=== PATIENT | female | born 1940 | race Asian ===

== ENCOUNTER 2022-03-22 05:12 | Observation (INO) | payer OTHER ==
[2022-03-22 05:30] VITALS: BMI 18.8
[2022-03-22 07:26] LABS: BASO % 0.8 % (0-2.0); EOS % 1.4 % (0-4.5); HEMATOCRIT 30.8 % (32.4-45.2); MCH 35.7 pg (25.7-33.7); MCHC 32.6 g/dl (32.0-36.0); MEAN CELL VOLUME 109.7 fl (80-96); MONO % 8.8 % (3.8-10.2); PLATELET COUNT 70 10^3/uL (134-434); RBC 2.81 M/mm3 (3.60-5.2); RDW 22.6 % (11.6-15.6); WHITE BLOOD COUNT 3.3 K/mm3 (4.0-10.0)
[2022-03-22 07:50] LABS: CHLORIDE 101 mmol/L (98-107); SODIUM 137 mmol/L (136-145)
[2022-03-22 07:52] LABS: ALBUMIN 3.5 g/dl (3.4-5.0); ANION GAP 13 MMOL/L (8-16); BLOOD UREA NITROGEN 38.1 mg/dL (7-18); CALCIUM 9.6 mg/dL (8.5-10.1); CO2 23 mmol/L (21-32); GLUCOSE,RANDOM 162 mg/dL (74-106); MAGNESIUM 2.8 mg/dL (1.8-2.4)
[2022-03-22 07:55] LABS: CREATININE 5.4 mg/dL (0.55-1.3); PHOSPHOROUS 3.8 mg/dL (2.5-4.9); SGPT/ALT 30 U/L (13-61)
[2022-03-22 07:56] LABS: SGOT/AST 49 U/L (15-37)
[2022-03-22 07:57] LABS: BILIRUBIN,TOTAL 1.9 mg/dL (0.2-1); TOT PROT 8.2 g/dl (6.4-8.2)
[2022-03-22 07:58] LABS: ALK PHOS 217 U/L (45-117)
[2022-03-22] MEDS ORDERED: ASPIRIN 81 MG CHEWABLE TABLETS PO ONE (08:31)
[2022-03-22] MEDS ORDERED: ASPIRIN 81 MG CHEWABLE TABLETS ONE (09:21)
[2022-03-22] MEDS ORDERED: SODIUM CHLORIDE 250 ML IV PRN ×2 (14:04→14:06)
[2022-03-22] MEDS ORDERED: HEPARIN NA (PORCINE) 5,000 UNITS/ML 1ML VIAL SQ SCH (22:00)
[2022-03-23] MEDS ORDERED: HEPARIN NA (PORCINE) 5,000 UNITS/ML 1ML VIAL IVPUSH ONE (08:30)
[2022-03-23] MEDS ORDERED: SODIUM CHLORIDE 250 ML IV PRN (08:37)
[2022-03-23] MEDS: ALBUMIN HUMAN 25% 12.5 GM/50 ML VIAL IV SCH ×4 (08:45→10:15)
[2022-03-23 09:42] LABS: BASO % 0.4 % (0-2.0); EOS % 0.8 % (0-4.5); HEMATOCRIT 25.8 % (32.4-45.2); HEMOGLOBIN 8.6 GM/dL (10.7-15.3); LYMPH % 14.7 % (8-40); MCH 36.4 pg (25.7-33.7); MCHC 33.5 g/dl (32.0-36.0); MEAN CELL VOLUME 108.8 fl (80-96); MEAN PLT VOLUME 7.6 fl (7.5-11.1); NEUT % 75.1 % (42.8-82.8); PLATELET COUNT 43 10^3/uL (134-434); RBC 2.37 M/mm3 (3.60-5.2); RDW 22.2 % (11.6-15.6); WHITE BLOOD COUNT 4.9 K/mm3 (4.0-10.0)
[2022-03-23] MEDS ORDERED: MIDODRINE HCL 5 MG TABLET PO SCH (10:00)
[2022-03-23] MEDS ORDERED: MIDODRINE HCL 5 MG TABLET PO PRN ×2 (14:49→15:28)
[2022-03-23] MEDS: LACTULOSE 20 GM/30 ML UDC (FOR ORAL USE ONLY) PO SCH ×2 (16:00→21:41)
[2022-03-23 16:22] LABS: BLOOD UREA NITROGEN 45.5 mg/dL (7-18)
[2022-03-23 16:23] LABS: CALCIUM 8.9 mg/dL (8.5-10.1)
[2022-03-23] MEDS: CHOLESTYRAMINE/SUCROSE 4 GM PACKET PO SCH (18:03)
[2022-03-23] MEDS: RIFAXIMIN 550 MG TABLET PO SCH (21:41)
[2022-03-23] MEDS: SIMETHICONE 80 MG TAB.CHEW (FP) PO SCH (21:41)
[2022-03-24] MEDS: LACTULOSE 20 GM/30 ML UDC (FOR ORAL USE ONLY) PO SCH ×3 (06:08→23:17)
[2022-03-24] MEDS ORDERED: PANTOPRAZOLE 40 MG TABLET PO SCH (10:00)
[2022-03-24] MEDS ORDERED: MIDODRINE HCL 5 MG TABLET PO SCH (10:00)
[2022-03-24] MEDS: SIMETHICONE 80 MG TAB.CHEW (FP) PO SCH ×2 (10:08→22:39)
[2022-03-24] MEDS: RIFAXIMIN 550 MG TABLET PO SCH ×2 (10:08→22:40)
[2022-03-24] MEDS: CHOLESTYRAMINE/SUCROSE 4 GM PACKET PO SCH (10:10)
[2022-03-24] MEDS ORDERED: SODIUM CHLORIDE 250 ML IV PRN ×2 (10:38→20:42)
[2022-03-24] MEDS: HEPARIN NA (PORCINE) 5,000 UNITS/ML 1ML VIAL SQ SCH ×2 (15:56→22:39)
[2022-03-24 16:07] LABS: ALBUMIN 3.6 g/dl (3.4-5.0); CALCIUM 9.3 mg/dL (8.5-10.1)
[2022-03-24 16:11] LABS: CREATININE 4.2 mg/dL (0.55-1.3)
[2022-03-24 16:12] LABS: BILIRUBIN,TOTAL 1.9 mg/dL (0.2-1); TOT PROT 7.8 g/dl (6.4-8.2)
[2022-03-24] MEDS: AMINO ACIDS/PROTEIN HYDROLYS 30 ML LIQUID.PKT PO SCH (17:17)
[2022-03-24] MEDS ORDERED: MIDODRINE HCL 5 MG TABLET PO PRN (20:42)
[2022-03-25] MEDS: LACTULOSE 20 GM/30 ML UDC (FOR ORAL USE ONLY) PO SCH ×3 (05:26→21:05)
[2022-03-25] MEDS: SIMETHICONE 80 MG TAB.CHEW (FP) PO SCH ×2 (09:49→21:05)
[2022-03-25] MEDS: AMINO ACIDS/PROTEIN HYDROLYS 30 ML LIQUID.PKT PO SCH ×2 (09:49→17:56)
[2022-03-25] MEDS: HEPARIN NA (PORCINE) 5,000 UNITS/ML 1ML VIAL SQ SCH ×2 (09:49→21:05)
[2022-03-25] MEDS ORDERED: PANTOPRAZOLE 40 MG TABLET PO SCH (10:00)
[2022-03-25] MEDS ORDERED: CHOLESTYRAMINE/SUCROSE 4 GM PACKET PO SCH (10:00)
[2022-03-25] MEDS ORDERED: VITAMIN B COMP W-C 1 EA TABLET (NEPHRO-VITE) PO SCH (10:00)
[2022-03-25] MEDS ORDERED: EPOETIN ALFA 10,000 UNIT/1 ML VIAL SQ ONE ×2 (10:40→17:00)
[2022-03-25] MEDS ORDERED: ALBUMIN HUMAN 25% 12.5 GM/50 ML VIAL IVPB SCH (10:45)
[2022-03-25] MEDS: ALBUMIN HUMAN 25% 12.5 GM/50 ML VIAL IV SCH ×4 (14:45→17:31)
[2022-03-25] MEDS: RIFAXIMIN 550 MG TABLET PO SCH ×2 (15:18→21:06)
[2022-03-25 15:50] LABS: HEMATOCRIT 26.1 % (32.4-45.2); HEMOGLOBIN 8.5 GM/dL (10.7-15.3); MCH 35.7 pg (25.7-33.7); MCHC 32.5 g/dl (32.0-36.0); MEAN CELL VOLUME 109.6 fl (80-96); MEAN PLT VOLUME 7.8 fl (7.5-11.1); PLATELET COUNT 43 10^3/uL (134-434); RBC 2.38 M/mm3 (3.60-5.2); RDW 20.7 % (11.6-15.6); WHITE BLOOD COUNT 4.3 K/mm3 (4.0-10.0)
[2022-03-25 15:59] LABS: INR 1.42 (0.83-1.09); PROTHROMBIN TIME (PATIENT) 16.4 SEC (9.7-13.0)
[2022-03-25 16:01] LABS: ACTIVATED PTT 52.1 SECONDS (25.2-36.5)
[2022-03-25 16:10] LABS: ALBUMIN 3.2 g/dl (3.4-5.0); BLOOD UREA NITROGEN 32.5 mg/dL (7-18)
[2022-03-25 16:14] LABS: BILIRUBIN,TOTAL 1.8 mg/dL (0.2-1)
[2022-03-25 16:15] LABS: TOT PROT 7.2 g/dl (6.4-8.2)
[2022-03-25 22:21] VITALS: RESP 18
[2022-03-26 03:31] VITALS: TEMP 97.5
[2022-03-26 05:02] VITALS: BP 97/59; PULSE 110
[2022-03-26] MEDS: LACTULOSE 20 GM/30 ML UDC (FOR ORAL USE ONLY) PO SCH (05:12)
== END 2022-03-26 07:23 | disposition home health service (06) ==
LOC: JER 05:12 → INTOOBSV 11:13 → UNDOADMOB 11:13 → JERBED 11:13 → J4W 23:04 → JERBED 23:04 → J4W 03-23 13:45 → J8W 03-24 20:15
PROVIDERS: ADMIT Internal Medicine; ATTEND Internal Medicine
PROC: 3E033GC Introduction of Other Therapeutic Substance into Peripheral Vein, Percutaneous Approach (ICD-10-PCS; principal; 2022-03-23)
PROC: 3E023GC Introduction of Other Therapeutic Substance into Muscle, Percutaneous Approach (ICD-10-PCS; 2022-03-23)
DX: K74.69 Other cirrhosis of liver (principal); K76.6 Portal hypertension; I81 Portal vein thrombosis; D68.59 Other primary thrombophilia; D69.6 Thrombocytopenia, unspecified; I24.8 Other forms of acute ischemic heart disease; R07.9 Chest pain, unspecified; R77.8 Other specified abnormalities of plasma proteins; E11.22 Type 2 diabetes mellitus with diabetic chronic kidney disease; N18.6 End stage renal disease; Z99.2 Dependence on renal dialysis; D61.818 Other pancytopenia
CPT/HCPCS: 0241U-QW; 36415; 71045-TC-FY; 80048; 80053; 83735; 83880; 84100; 84484; 85025; 85027; 85384; 85610; 85730; 86803; 87340; 93005; 93010; 93306-TC; 96372; 96374; 96375; 99285-25; G0378; J0885; J1644; P9047

== ENCOUNTER 2022-10-22 04:55 | Inpatient (IN) | payer OTHER ==
[2022-10-22 06:09] LABS: VENOUS BASE EXCESS -1.8 mmol/L (-2-2); VENOUS O2 SATURATION 32.1 % (70-80); VENOUS PCO2 58.8 mmHg (38-52); VENOUS PH 7.268 (7.310-7.410)
[2022-10-22 06:16] LABS: CHLORIDE 102 mmol/L (98-107); POTASSIUM 3.8 mmol/L (3.5-5.1); SODIUM 139 mmol/L (136-145)
[2022-10-22 06:18] LABS: CALCIUM 9.5 mg/dL (8.5-10.1)
[2022-10-22 06:20] LABS: ALBUMIN 2.8 g/dl (3.4-5.0); ANION GAP 11 MMOL/L (8-16); BLOOD UREA NITROGEN 43.3 mg/dL (7-18); CO2 26 mmol/L (21-32); GLUCOSE,RANDOM 201 mg/dL (74-106)
[2022-10-22 06:23] LABS: BILIRUBIN,TOTAL 2.5 mg/dL (0.2-1); CREATININE 3.8 mg/dL (0.55-1.3); SGOT/AST 19 U/L (15-37); SGPT/ALT 12 U/L (13-61); TOT PROT 7.5 g/dl (6.4-8.2)
[2022-10-22 06:25] LABS: ALK PHOS 120 U/L (45-117)
[2022-10-22 06:30] LABS: LACTIC ACID 5.7 mmol/L (0.4-2.0)
[2022-10-22] MEDS ORDERED: PIPERACILLIN/TAZOB 4.5 GM 4.5 GM in DEXTROSE 5%-WATER 100 ML IVPB ONE (06:31)
[2022-10-22] MEDS ORDERED: VANCOMYCIN 1 GM in D5W (PRE-DOCKED) 1,000 MG/250 ML (RESTRICTED TO ID ONLY IVPB ONE (06:31)
[2022-10-22] MEDS ORDERED: PIPERACILLIN/TAZOB 4.5 GM 4.5 GM/100 ML BAG IVPB ONE (06:39)
[2022-10-22 06:50] LABS: BASO % 0.7 % (0-2.0); EOS % 0.7 % (0-4.5); HEMATOCRIT 29.7 % (32.4-45.2); HEMOGLOBIN 9.4 GM/dL (10.7-15.3); LYMPH % 16.1 % (8-40); MCH 33.3 pg (25.7-33.7); MCHC 31.8 g/dl (32.0-36.0); MEAN CELL VOLUME 104.8 fl (80-96); MEAN PLT VOLUME 9.5 fl (7.5-11.1); MONO % 8.9 % (3.8-10.2); NEUT % 73.6 % (42.8-82.8); RBC 2.83 M/mm3 (3.60-5.2); RDW 26.6 % (11.6-15.6)
[2022-10-22 06:53] LABS: PLATELET COUNT 22 10^3/uL (134-434)
[2022-10-22] MEDS ORDERED: VANCOMYCIN/WATER FOR INJ (PEG) 1,000 MG/200 ML BAG IVPB ONE (07:31)
[2022-10-22] MEDS ORDERED: SODIUM CHLORIDE 0.9% 500 ML INFUS.BAG IV ONE ×2 (09:12→09:45)
[2022-10-22] MEDS ORDERED: MIDODRINE HCL 5 MG TABLET PO ONE (09:15)
[2022-10-22 09:57] LABS: LACTIC ACID 4.5 mmol/L (0.4-2.0)
[2022-10-22] MEDS ORDERED: HEPARIN NA (PORCINE) 5,000 UNITS/ML 1ML VIAL SQ SCH (10:00)
[2022-10-22] MEDS ORDERED: MIDODRINE HCL 5 MG TABLET PO SCH ×2 (10:00→11:23)
[2022-10-22] MEDS ORDERED: VASOPRESSIN 20 UNITS/ML VIAL IV ONE (12:35)
[2022-10-22] MEDS ORDERED: NOREPINEPHRINE BITARTRATE 16,000 MCG in SODIUM CHLORIDE 484 ML IV SCH (13:30)
[2022-10-22] MEDS ORDERED: DEXMEDETOMIDINE PREMIX 400 MCG/100 ML BAG IVPB ONE (13:34)
[2022-10-22] MEDS ORDERED: PATIENT'S OWN MEDICATION (NON-FORMULARY) (Midodrine Hcl [Midodrine Hcl] 10 MG Tablet) PO PRN (13:52)
[2022-10-22] MEDS: NOREPINEPHRINE 0.9 % NACL 8 MG/250 ML BAG IVPB SCH (14:00)
[2022-10-22] MEDS: MUPIROCIN 2% TOPICAL OINTMENT FOR DECOLONIZATION NS SCH ×2 (14:08→21:48)
[2022-10-22] MEDS: RIFAXIMIN 550 MG TABLET PO SCH ×2 (14:09→21:48)
[2022-10-22] MEDS: PANTOPRAZOLE 40 MG TABLET PO SCH (14:09)
[2022-10-22] MEDS ORDERED: DEXMEDETOMIDINE PREMIX 400 MCG/100 ML BAG IVPB SCH (14:30)
[2022-10-22] MEDS: LACTULOSE 20 GM/30 ML UDC (FOR ORAL USE ONLY) PO SCH ×2 (14:49→21:47)
[2022-10-22] MEDS: MIDODRINE HCL 5 MG TABLET PO SCH ×2 (14:50→17:15)
[2022-10-22 15:56] LABS: ARTERIAL BLD GAS O2 SATURATION 99.5 % (95-98); ARTERIAL BLOOD GAS BASE EXCESS -4.5 mmol/L (-2-2); ARTERIAL BLOOD GAS pH 7.333 (7.350-7.450)
[2022-10-22] MEDS: AMINO ACIDS/PROTEIN HYDROLYS 30 ML LIQUID.PKT PO SCH (16:46)
[2022-10-22] MEDS: DROXIDOPA 200 MG PO SCH ×2 (16:46→21:47)
[2022-10-22 18:25] LABS: RETICULOCYTES 1.96 % (0.5-1.5)
[2022-10-22 18:31] LABS: BILIRUBIN,DIRECT 1.4 mg/dL (0.0-0.2)
[2022-10-22 18:36] LABS: LDH 258 U/L (84-246)
[2022-10-22 19:02] LABS: INR 1.76 (0.83-1.09); PROTHROMBIN TIME (PATIENT) 20.3 SEC (9.7-13.0)
[2022-10-22 19:04] LABS: ACTIVATED PTT 48.5 SECONDS (25.2-36.5)
[2022-10-22] MEDS ORDERED: SODIUM CHLORIDE 250 ML IV PRN (19:19)
[2022-10-22] MEDS ORDERED: VASOPRESSIN 40 UNITS/100 ML BAG IV SCH (19:45)
[2022-10-22] MEDS: VASOPRESSIN 40 UNITS/100 ML BAG IV SCH (20:29)
[2022-10-22] MEDS: URSODIOL 300 MG CAPSULE PO SCH (21:47)
[2022-10-22] MEDS: INSULIN SLIDING SCALE (NOVOLOG) 1 VIAL SQ SCH (21:47)
[2022-10-22] MEDS: CHLORHEXIDINE GLUCONATE 4% CLEANSER FOR DECOLONIZATION TP SCH (21:47)
[2022-10-23 04:16] LABS: BF WBC & OTHER NUCLEATED CELLS 563 /mm3
[2022-10-23 04:22] LABS: BODY FLUID MONOCYTE 29 %
[2022-10-23] MEDS: LACTULOSE 20 GM/30 ML UDC (FOR ORAL USE ONLY) PO SCH ×3 (06:03→21:10)
[2022-10-23] MEDS: DROXIDOPA 200 MG PO SCH ×3 (06:03→21:10)
[2022-10-23] MEDS: INSULIN SLIDING SCALE (NOVOLOG) 1 VIAL SQ SCH ×4 (06:24→21:14)
[2022-10-23 07:06] LABS: HEMATOCRIT 23.1 % (32.4-45.2); HEMOGLOBIN 7.4 GM/dL (10.7-15.3); MCHC 31.9 g/dl (32.0-36.0); MEAN CELL VOLUME 103.4 fl (80-96); MEAN PLT VOLUME 9.5 fl (7.5-11.1); PLATELET COUNT 52 10^3/uL (134-434); RBC 2.23 M/mm3 (3.60-5.2); RDW 26.1 % (11.6-15.6); WHITE BLOOD COUNT 15.3 K/mm3 (4.0-10.0)
[2022-10-23 07:24] LABS: POTASSIUM 4.1 mmol/L (3.5-5.1)
[2022-10-23 07:31] LABS: ALBUMIN 2.4 g/dl (3.4-5.0)
[2022-10-23 07:32] LABS: CALCIUM 9.3 mg/dL (8.5-10.1)
[2022-10-23 07:33] LABS: BLOOD UREA NITROGEN 51.2 mg/dL (7-18); MAGNESIUM 2.4 mg/dL (1.8-2.4)
[2022-10-23 07:34] LABS: CREATININE 4.1 mg/dL (0.55-1.3)
[2022-10-23 07:36] LABS: BILIRUBIN,TOTAL 2.9 mg/dL (0.2-1); PHOSPHOROUS 3.7 mg/dL (2.5-4.9); TOT PROT 6.5 g/dl (6.4-8.2)
[2022-10-23] MEDS ORDERED: EPOETIN ALFA-EPBX 4,000 UNIT/ML VIAL IVPUSH ONE (08:00)
[2022-10-23] MEDS: AMINO ACIDS/PROTEIN HYDROLYS 30 ML LIQUID.PKT PO SCH ×4 (08:20→17:19)
[2022-10-23 08:41] LABS: ANISOCYTOSIS 1+; MACROCYTOSIS 1+
[2022-10-23] MEDS: RIFAXIMIN 550 MG TABLET PO SCH ×3 (09:13→21:10)
[2022-10-23] MEDS: URSODIOL 300 MG CAPSULE PO SCH ×3 (09:14→21:09)
[2022-10-23] MEDS: MIDODRINE HCL 5 MG TABLET PO SCH ×4 (09:14→17:19)
[2022-10-23] MEDS: PANTOPRAZOLE 40 MG TABLET PO SCH (09:14)
[2022-10-23] MEDS: CHOLESTYRAMINE/ASPARTAME 4 GM PACKET PO SCH ×2 (09:14→11:21)
[2022-10-23] MEDS: MUPIROCIN 2% TOPICAL OINTMENT FOR DECOLONIZATION NS SCH ×2 (09:14→21:09)
[2022-10-23 10:23] LABS: BLOOD UREA NITROGEN 47.9 mg/dL (7-18); CALCIUM 9.3 mg/dL (8.5-10.1)
[2022-10-23 10:24] LABS: ALBUMIN 2.2 g/dl (3.4-5.0)
[2022-10-23 10:26] LABS: CREATININE 3.8 mg/dL (0.55-1.3)
[2022-10-23 10:27] LABS: BILIRUBIN,DIRECT 1.7 mg/dL (0.0-0.2)
[2022-10-23 10:28] LABS: BILIRUBIN,TOTAL 2.5 mg/dL (0.2-1); TOT PROT 5.9 g/dl (6.4-8.2)
[2022-10-23] MEDS ORDERED: PIPERACILLIN/TAZOB 2.25 GM 2.25 GM in DEXTROSE 5%-WATER - 50 ML IVPB SCH (10:30)
[2022-10-23] MEDS: PANTOPRAZOLE SODIUM 40 MG VIAL IVPUSH SCH (11:28)
[2022-10-23] MEDS: NOREPINEPHRINE 0.9 % NACL 8 MG/250 ML BAG IVPB SCH (11:29)
[2022-10-23] MEDS: ALBUMIN HUMAN 25% 12.5 GM/50 ML VIAL IV SCH ×3 (11:31→11:32)
[2022-10-23] MEDS ORDERED: VANCOMYCIN/WATER FOR INJ (PEG) 750 MG/150 ML BAG IVPB ONE (12:30)
[2022-10-23 14:49] LABS: HEMATOCRIT 20.4 % (32.4-45.2); MCHC 31.8 g/dl (32.0-36.0); MEAN CELL VOLUME 103.6 fl (80-96); MEAN PLT VOLUME 9.2 fl (7.5-11.1); PLATELET COUNT 40 10^3/uL (134-434); RBC 1.97 M/mm3 (3.60-5.2); RDW 26.2 % (11.6-15.6); WHITE BLOOD COUNT 13.2 K/mm3 (4.0-10.0)
[2022-10-23 14:54] LABS: HEMOGLOBIN 6.5 GM/dL (10.7-15.3)
[2022-10-23 15:16] LABS: ANISOCYTOSIS 2+; MACROCYTOSIS 2+; TARGET CELLS 1+
[2022-10-23] MEDS: PIPERACILLIN/TAZOB 2.25 GM 2.25 GM in DEXTROSE 5%-WATER - 50 ML IVPB SCH ×2 (15:50→21:06)
[2022-10-23 15:53] LABS: ARTERIAL BLD GAS O2 SATURATION 99.7 % (95-98); ARTERIAL BLOOD GAS BASE EXCESS 0.4 mmol/L (-2-2); ARTERIAL BLOOD GAS PO2 280.6 mmHg (80-100); ARTERIAL BLOOD GAS pH 7.435 (7.350-7.450)
[2022-10-23] MEDS: VASOPRESSIN 40 UNITS/100 ML BAG IV SCH (21:09)
[2022-10-23] MEDS: CHLORHEXIDINE GLUCONATE 4% CLEANSER FOR DECOLONIZATION TP SCH (21:10)
[2022-10-24] MEDS: PIPERACILLIN/TAZOB 2.25 GM 2.25 GM in DEXTROSE 5%-WATER - 50 ML IVPB SCH ×4 (02:30→21:55)
[2022-10-24] MEDS: LACTULOSE 20 GM/30 ML UDC (FOR ORAL USE ONLY) PO SCH ×4 (05:52→22:19)
[2022-10-24] MEDS: DROXIDOPA 200 MG PO SCH ×3 (05:52→21:56)
[2022-10-24] MEDS: INSULIN SLIDING SCALE (NOVOLOG) 1 VIAL SQ SCH ×4 (06:38→22:34)
[2022-10-24 07:44] LABS: HEMATOCRIT 26.8 % (32.4-45.2); HEMOGLOBIN 8.8 GM/dL (10.7-15.3); MCH 32.7 pg (25.7-33.7); MCHC 32.8 g/dl (32.0-36.0); MEAN CELL VOLUME 99.6 fl (80-96); MEAN PLT VOLUME 9.1 fl (7.5-11.1); RBC 2.69 M/mm3 (3.60-5.2); RDW 24.4 % (11.6-15.6); WHITE BLOOD COUNT 14.4 K/mm3 (4.0-10.0)
[2022-10-24 07:49] LABS: PLATELET COUNT 31 10^3/uL (134-434)
[2022-10-24 07:52] LABS: POTASSIUM 3.5 mmol/L (3.5-5.1)
[2022-10-24 07:58] LABS: CALCIUM 9.2 mg/dL (8.5-10.1)
[2022-10-24 07:59] LABS: ALBUMIN 2.6 g/dl (3.4-5.0); BLOOD UREA NITROGEN 34.7 mg/dL (7-18); MAGNESIUM 2.2 mg/dL (1.8-2.4)
[2022-10-24 08:02] LABS: CREATININE 2.6 mg/dL (0.55-1.3); PHOSPHOROUS 4.2 mg/dL (2.5-4.9)
[2022-10-24 08:03] LABS: TOT PROT 6.6 g/dl (6.4-8.2)
[2022-10-24 08:04] LABS: BILIRUBIN,TOTAL 3.5 mg/dL (0.2-1)
[2022-10-24] MEDS: AMINO ACIDS/PROTEIN HYDROLYS 30 ML LIQUID.PKT PO SCH ×2 (09:01→18:28)
[2022-10-24] MEDS: ACETAMINOPHEN 650 MG/20.3 ML ORAL SOLUTION (CUPS) PO PRN ×2 (09:01→15:59)
[2022-10-24] MEDS: PANTOPRAZOLE SODIUM 40 MG VIAL IVPUSH SCH (09:01)
[2022-10-24] MEDS: RIFAXIMIN 550 MG TABLET PO SCH ×2 (09:02→21:55)
[2022-10-24] MEDS: MIDODRINE HCL 5 MG TABLET PO SCH ×3 (09:02→18:28)
[2022-10-24] MEDS: CHOLESTYRAMINE/ASPARTAME 4 GM PACKET PO SCH (09:05)
[2022-10-24 09:22] LABS: ANISOCYTOSIS 0; MACROCYTOSIS 0
[2022-10-24] MEDS: MUPIROCIN 2% TOPICAL OINTMENT FOR DECOLONIZATION NS SCH ×2 (09:36→21:50)
[2022-10-24] MEDS: URSODIOL 300 MG CAPSULE PO SCH ×2 (09:36→21:56)
[2022-10-24] MEDS ORDERED: VANCOMYCIN 1 GM in D5W (PRE-DOCKED) 1,000 MG/250 ML (RESTRICTED TO ID ONLY IVPB ONE (10:00)
[2022-10-24] MEDS ORDERED: VANCOMYCIN/WATER FOR INJ (PEG) 1,000 MG/200 ML BAG IVPB ONE (10:00)
[2022-10-24] MEDS: LIDOCAINE 5% TOPICAL PATCH TP SCH (10:00)
[2022-10-24] MEDS: VASOPRESSIN 40 UNITS/100 ML BAG IV SCH (21:48)
[2022-10-24] MEDS: LIDOCAINE PATCH REMOVAL MC SCH (21:50)
[2022-10-24] MEDS: CHLORHEXIDINE GLUCONATE 4% CLEANSER FOR DECOLONIZATION TP SCH (21:50)
[2022-10-25] MEDS: PIPERACILLIN/TAZOB 2.25 GM 2.25 GM in DEXTROSE 5%-WATER - 50 ML IVPB SCH ×4 (02:25→21:21)
[2022-10-25] MEDS: ACETAMINOPHEN 650 MG/20.3 ML ORAL SOLUTION (CUPS) PO PRN (02:38)
[2022-10-25] MEDS: LACTULOSE 20 GM/30 ML UDC (FOR ORAL USE ONLY) PO SCH ×3 (05:05→21:23)
[2022-10-25] MEDS: DROXIDOPA 200 MG PO SCH ×3 (05:05→21:23)
[2022-10-25] MEDS: INSULIN SLIDING SCALE (NOVOLOG) 1 VIAL SQ SCH ×4 (06:06→21:24)
[2022-10-25 07:51] LABS: LACTIC ACID 3.6 mmol/L (0.4-2.0)
[2022-10-25] MEDS: MIDODRINE HCL 5 MG TABLET PO SCH ×3 (10:08→17:51)
[2022-10-25] MEDS: RIFAXIMIN 550 MG TABLET PO SCH ×2 (10:08→21:23)
[2022-10-25] MEDS: LIDOCAINE 5% TOPICAL PATCH TP SCH (10:09)
[2022-10-25] MEDS: URSODIOL 300 MG CAPSULE PO SCH ×2 (10:09→21:22)
[2022-10-25] MEDS: PANTOPRAZOLE SODIUM 40 MG VIAL IVPUSH SCH (10:09)
[2022-10-25] MEDS: AMINO ACIDS/PROTEIN HYDROLYS 30 ML LIQUID.PKT PO SCH ×2 (10:09→17:51)
[2022-10-25] MEDS: CHOLESTYRAMINE/ASPARTAME 4 GM PACKET PO SCH (10:10)
[2022-10-25] MEDS: MUPIROCIN 2% TOPICAL OINTMENT FOR DECOLONIZATION NS SCH ×2 (10:11→21:22)
[2022-10-25 13:08] LABS: BODY FLUID ALBUMIN 0.8 g/dL (Not Estab.)
[2022-10-25] MEDS ORDERED: SODIUM CHLORIDE 250 ML IV PRN (13:32)
[2022-10-25 16:48] LABS: HEMOGLOBIN 9.3 GM/dL (10.7-15.3); MCH 32.3 pg (25.7-33.7); MEAN CELL VOLUME 100.7 fl (80-96); MEAN PLT VOLUME 9.9 fl (7.5-11.1); RBC 2.88 M/mm3 (3.60-5.2)
[2022-10-25 16:54] LABS: PLATELET COUNT 25 10^3/uL (134-434)
[2022-10-25] MEDS: LIDOCAINE PATCH REMOVAL MC SCH (21:23)
[2022-10-25] MEDS: CHLORHEXIDINE GLUCONATE 4% CLEANSER FOR DECOLONIZATION TP SCH (21:23)
[2022-10-26] MEDS: PIPERACILLIN/TAZOB 2.25 GM 2.25 GM in DEXTROSE 5%-WATER - 50 ML IVPB SCH ×4 (03:00→22:11)
[2022-10-26] MEDS: DROXIDOPA 200 MG PO SCH ×3 (05:48→23:06)
[2022-10-26] MEDS: LACTULOSE 20 GM/30 ML UDC (FOR ORAL USE ONLY) PO SCH ×3 (05:48→22:11)
[2022-10-26] MEDS: INSULIN SLIDING SCALE (NOVOLOG) 1 VIAL SQ SCH ×4 (06:17→22:14)
[2022-10-26 07:21] LABS: HEMATOCRIT 29.7 % (32.4-45.2); HEMOGLOBIN 9.8 GM/dL (10.7-15.3); MCH 33.2 pg (25.7-33.7); MCHC 32.9 g/dl (32.0-36.0); MEAN PLT VOLUME 8.6 fl (7.5-11.1); RBC 2.95 M/mm3 (3.60-5.2); RDW 25.5 % (11.6-15.6); WHITE BLOOD COUNT 10.5 K/mm3 (4.0-10.0)
[2022-10-26 07:25] LABS: PLATELET COUNT 15 10^3/uL (134-434)
[2022-10-26 07:52] LABS: CREATININE 3.8 mg/dL (0.55-1.3)
[2022-10-26 07:53] LABS: BLOOD UREA NITROGEN 63.7 mg/dL (7-18)
[2022-10-26] MEDS ORDERED: SODIUM CHLORIDE 250 ML IV PRN (08:00)
[2022-10-26] MEDS ORDERED: EPOETIN ALFA 10,000 UNIT/1 ML VIAL SQ ONE (08:30)
[2022-10-26] MEDS: ALBUMIN HUMAN 25% 12.5 GM/50 ML VIAL IV SCH ×2 (08:45→09:15)
[2022-10-26] MEDS: MIDODRINE HCL 5 MG TABLET PO SCH ×3 (09:04→17:39)
[2022-10-26] MEDS: LIDOCAINE 5% TOPICAL PATCH TP SCH (09:04)
[2022-10-26] MEDS: RIFAXIMIN 550 MG TABLET PO SCH ×2 (09:04→22:12)
[2022-10-26] MEDS: AMINO ACIDS/PROTEIN HYDROLYS 30 ML LIQUID.PKT PO SCH ×2 (09:05→16:56)
[2022-10-26] MEDS: CHOLESTYRAMINE/ASPARTAME 4 GM PACKET PO SCH (09:05)
[2022-10-26] MEDS: PANTOPRAZOLE SODIUM 40 MG VIAL IVPUSH SCH (09:05)
[2022-10-26] MEDS: MUPIROCIN 2% TOPICAL OINTMENT FOR DECOLONIZATION NS SCH (09:05)
[2022-10-26] MEDS: URSODIOL 300 MG CAPSULE PO SCH ×2 (09:05→22:12)
[2022-10-26] MEDS ORDERED: POTASSIUM CHLORIDE ORAL LIQUID 20 MEQ/15 ML PO ONE (13:15)
[2022-10-26] MEDS: ACETAMINOPHEN 650 MG/20.3 ML ORAL SOLUTION (CUPS) PO PRN (14:34)
[2022-10-26 15:33] VITALS: BMI 17.7
[2022-10-26] MEDS: LIDOCAINE PATCH REMOVAL MC SCH (22:14)
[2022-10-27] MEDS: PIPERACILLIN/TAZOB 2.25 GM 2.25 GM in DEXTROSE 5%-WATER - 50 ML IVPB SCH ×4 (02:37→22:24)
[2022-10-27] MEDS: ACETAMINOPHEN 650 MG/20.3 ML ORAL SOLUTION (CUPS) PO PRN ×2 (03:19→09:41)
[2022-10-27] MEDS: LACTULOSE 20 GM/30 ML UDC (FOR ORAL USE ONLY) PO SCH ×3 (05:46→22:20)
[2022-10-27] MEDS: DROXIDOPA 200 MG PO SCH ×3 (05:47→22:21)
[2022-10-27] MEDS: INSULIN SLIDING SCALE (NOVOLOG) 1 VIAL SQ SCH ×4 (06:02→22:30)
[2022-10-27] MEDS ORDERED: SODIUM CHLORIDE 250 ML IV PRN (07:26)
[2022-10-27] MEDS: AMINO ACIDS/PROTEIN HYDROLYS 30 ML LIQUID.PKT PO SCH ×2 (08:41→18:25)
[2022-10-27 09:10] LABS: HEMATOCRIT 33.2 % (32.4-45.2); HEMOGLOBIN 10.8 GM/dL (10.7-15.3); MCH 32.5 pg (25.7-33.7); MCHC 32.6 g/dl (32.0-36.0); MEAN CELL VOLUME 99.7 fl (80-96); MEAN PLT VOLUME 8.6 fl (7.5-11.1); RBC 3.33 M/mm3 (3.60-5.2); RDW 25.4 % (11.6-15.6); WHITE BLOOD COUNT 6.2 K/mm3 (4.0-10.0)
[2022-10-27 09:23] LABS: PLATELET COUNT 11 10^3/uL (134-434)
[2022-10-27] MEDS: LIDOCAINE 5% TOPICAL PATCH TP SCH (09:27)
[2022-10-27] MEDS: MIDODRINE HCL 5 MG TABLET PO SCH ×3 (09:28→18:25)
[2022-10-27] MEDS: PANTOPRAZOLE SODIUM 40 MG VIAL IVPUSH SCH (09:29)
[2022-10-27] MEDS: URSODIOL 300 MG CAPSULE PO SCH ×2 (09:29→22:24)
[2022-10-27] MEDS: RIFAXIMIN 550 MG TABLET PO SCH ×2 (09:29→22:25)
[2022-10-27] MEDS: CHOLESTYRAMINE/ASPARTAME 4 GM PACKET PO SCH (09:42)
[2022-10-27 09:43] LABS: POTASSIUM 3.4 mmol/L (3.5-5.1)
[2022-10-27 09:45] LABS: ANISOCYTOSIS 1+; MACROCYTOSIS 1+
[2022-10-27 09:50] LABS: CALCIUM 9.2 mg/dL (8.5-10.1)
[2022-10-27 09:51] LABS: ALBUMIN 2.3 g/dl (3.4-5.0); MAGNESIUM 2.1 mg/dL (1.8-2.4)
[2022-10-27 09:53] LABS: CREATININE 2.5 mg/dL (0.55-1.3); PHOSPHOROUS 2.8 mg/dL (2.5-4.9)
[2022-10-27 09:55] LABS: BILIRUBIN,TOTAL 2.2 mg/dL (0.2-1); TOT PROT 6.8 g/dl (6.4-8.2)
[2022-10-27 10:43] LABS: BLOOD UREA NITROGEN 36.8 mg/dL (7-18)
[2022-10-27] MEDS ORDERED: POTASSIUM CHLORIDE ORAL LIQUID 20 MEQ/15 ML PO ONE (11:45)
[2022-10-27] MEDS: KCL 10 MEQ IVPB 10 MEQ/100 ML INFUS.BAG IVPB SCH ×2 (12:28→13:58)
[2022-10-27] MEDS: THIAMINE HCL 200 MG/2 ML VIAL IVPB SCH (17:13)
[2022-10-27] MEDS: LIDOCAINE PATCH REMOVAL MC SCH (22:25)
[2022-10-28] MEDS: ACETAMINOPHEN 650 MG/20.3 ML ORAL SOLUTION (CUPS) PO PRN ×2 (01:55→17:00)
[2022-10-28] MEDS: PIPERACILLIN/TAZOB 2.25 GM 2.25 GM in DEXTROSE 5%-WATER - 50 ML IVPB SCH ×2 (03:23→15:12)
[2022-10-28] MEDS: LACTULOSE 20 GM/30 ML UDC (FOR ORAL USE ONLY) PO SCH ×3 (06:02→22:04)
[2022-10-28] MEDS: INSULIN SLIDING SCALE (NOVOLOG) 1 VIAL SQ SCH ×4 (06:03→22:45)
[2022-10-28] MEDS: DROXIDOPA 200 MG PO SCH ×3 (06:03→22:04)
[2022-10-28] MEDS ORDERED: SODIUM CHLORIDE 250 ML IV PRN (07:32)
[2022-10-28] MEDS: MIDODRINE HCL 5 MG TABLET PO SCH ×5 (08:09→23:30)
[2022-10-28] MEDS: AMINO ACIDS/PROTEIN HYDROLYS 30 ML LIQUID.PKT PO SCH ×2 (08:11→17:02)
[2022-10-28] MEDS: ALBUMIN HUMAN 25% 12.5 GM/50 ML VIAL IV SCH ×6 (08:55→19:38)
[2022-10-28 09:46] LABS: BASO % 0.2 % (0-2.0); EOS % 1.3 % (0-4.5); HEMATOCRIT 31.4 % (32.4-45.2); HEMOGLOBIN 9.9 GM/dL (10.7-15.3); LYMPH % 4.6 % (8-40); MCH 32.3 pg (25.7-33.7); MCHC 31.7 g/dl (32.0-36.0); MEAN CELL VOLUME 102.2 fl (80-96); MEAN PLT VOLUME 8.6 fl (7.5-11.1); MONO % 6.1 % (3.8-10.2); NEUT % 87.8 % (42.8-82.8); RBC 3.08 M/mm3 (3.60-5.2); RDW 25.4 % (11.6-15.6); WHITE BLOOD COUNT 5.6 K/mm3 (4.0-10.0)
[2022-10-28 10:14] LABS: PLATELET COUNT 28 10^3/uL (134-434)
[2022-10-28 10:15] LABS: POTASSIUM 3.5 mmol/L (3.5-5.1)
[2022-10-28 10:17] LABS: ALBUMIN 2.2 g/dl (3.4-5.0); BLOOD UREA NITROGEN 48.5 mg/dL (7-18); CALCIUM 8.9 mg/dL (8.5-10.1)
[2022-10-28 10:20] LABS: CREATININE 2.9 mg/dL (0.55-1.3)
[2022-10-28 10:22] LABS: BILIRUBIN,TOTAL 1.8 mg/dL (0.2-1); TOT PROT 6.4 g/dl (6.4-8.2)
[2022-10-28] MEDS: LIDOCAINE 5% TOPICAL PATCH TP SCH (15:08)
[2022-10-28] MEDS: URSODIOL 300 MG CAPSULE PO SCH ×2 (15:09→22:04)
[2022-10-28] MEDS: THIAMINE HCL 200 MG/2 ML VIAL IVPB SCH (15:09)
[2022-10-28] MEDS: PANTOPRAZOLE SODIUM 40 MG VIAL IVPUSH SCH (15:09)
[2022-10-28] MEDS: RIFAXIMIN 550 MG TABLET PO SCH ×2 (15:09→22:05)
[2022-10-28] MEDS: CHOLESTYRAMINE/ASPARTAME 4 GM PACKET PO SCH (15:10)
[2022-10-28] MEDS ORDERED: MIDAZOLAM HCL 2 MG/2 ML SINGLE DOSE VIAL IVPUSH ONE (18:02)
[2022-10-28 18:34] LABS: POTASSIUM 3.4 mmol/L (3.5-5.1)
[2022-10-28 18:36] LABS: CALCIUM 9.4 mg/dL (8.5-10.1)
[2022-10-28 18:37] LABS: BLOOD UREA NITROGEN 25.8 mg/dL (7-18); MAGNESIUM 1.9 mg/dL (1.8-2.4)
[2022-10-28 18:40] LABS: CREATININE 1.9 mg/dL (0.55-1.3); PHOSPHOROUS 3.3 mg/dL (2.5-4.9)
[2022-10-28 18:41] LABS: BILIRUBIN,TOTAL 2.9 mg/dL (0.2-1)
[2022-10-28 18:43] LABS: ALBUMIN 3.2 g/dl (3.4-5.0)
[2022-10-28] MEDS: CHLORHEXIDINE GLUCONATE 4% CLEANSER FOR DECOLONIZATION TP SCH (19:38)
[2022-10-28] MEDS: MUPIROCIN 2% TOPICAL OINTMENT FOR DECOLONIZATION NS SCH (19:38)
[2022-10-28] MEDS ORDERED: ALBUMIN HUMAN 25% 12.5 GM/50 ML VIAL IV ONE (20:20)
[2022-10-28] MEDS ORDERED: PIPERACILLIN/TAZOB 2.25 GM 2.25 GM in DEXTROSE 5%-WATER - 50 ML IVPB SCH ×2 (20:45→21:00)
[2022-10-28 20:59] LABS: HEMATOCRIT 28.3 % (32.4-45.2); MCH 32.9 pg (25.7-33.7); MCHC 31.9 g/dl (32.0-36.0); MEAN CELL VOLUME 103.3 fl (80-96); MEAN PLT VOLUME 9.4 fl (7.5-11.1); RBC 2.74 M/mm3 (3.60-5.2)
[2022-10-28 21:05] LABS: ADD RBC MORPHOLOGY YES; PLATELET COUNT 21 10^3/uL (134-434); WHITE BLOOD COUNT 1.6 K/mm3 (4.0-10.0)
[2022-10-28 21:34] LABS: LACTIC ACID 8.5 mmol/L (0.4-2.0)
[2022-10-28] MEDS ORDERED: NOREPINEPHRINE 0.9 % NACL 8 MG/250 ML BAG IVPB SCH (22:00)
[2022-10-28] MEDS: LIDOCAINE PATCH REMOVAL MC SCH (22:05)
[2022-10-28] MEDS ORDERED: FENTANYL CITRATE/PF 50 MCG/ML VIAL IVPUSH ONE (22:13)
[2022-10-28] MEDS ORDERED: fentaNYL CITRATE 250 MCG/5 ML VIAL ONE (22:18)
[2022-10-28 22:26] LABS: ANISOCYTOSIS 2+; MACROCYTOSIS 2+; OVALOCYTE 1+; TARGET CELLS 1+; TOXIC GRANULATION 1+
[2022-10-28 22:57] LABS: ALLENS TEST POSITIVE; ARTERIAL BLD GAS O2 SATURATION 90.2 % (95-98); ARTERIAL BLOOD GAS BASE EXCESS -8.5 mmol/L (-2-2); ARTERIAL BLOOD GAS PO2 62.4 mmHg (80-100)
[2022-10-28 22:58] LABS: VENT MODE A/C; VENT RATE 12
[2022-10-29] MEDS ORDERED: FENTANYL NS IVPB 500 MCG/100 ML BAG IVPB ONE (00:06)
[2022-10-29] MEDS ORDERED: FENTANYL CITRATE/PF 50 MCG/ML VIAL IVPUSH ONE (00:20)
[2022-10-29] MEDS ORDERED: FENTANYL IVPB 500 MCG/100 ML BAG IVPB SCH (00:30)
[2022-10-29] MEDS ORDERED: ALBUMIN HUMAN 25% 100 ML VIAL IV ONE (00:33)
[2022-10-29 00:51] LABS: LACTIC ACID 10.2 mmol/L (0.4-2.0)
[2022-10-29] MEDS ORDERED: SODIUM CHLORIDE 500 ML IV STA (00:57)
[2022-10-29 01:19] VITALS: TEMP 97.8
[2022-10-29 01:20] VITALS: BP 100/53; PULSE 131; RESP 21
[2022-10-29 02:03] LABS: BF WBC & OTHER NUCLEATED CELLS 480 /mm3
[2022-10-29 05:53] LABS: BODY FLUID MONOCYTE 24 %
== END 2022-10-29 01:40 | disposition short-term general hospital (02) | DRG 871 ==
LOC: JER 04:55 → JERBED 06:42 → JICU 12:20 → J5S 10-26 18:47 → JICU 10-28 19:58
PROVIDERS: ADMIT Internal Medicine; ATTEND Internal Medicine
PROC: 04HY32Z Insertion of Monitoring Device into Lower Artery, Percutaneous Approach (ICD-10-PCS; principal; 2022-10-22)
PROC: 4A133B1 Monitoring of Arterial Pressure, Peripheral, Percutaneous Approach (ICD-10-PCS; 2022-10-22)
PROC: 4A133J1 Monitoring of Arterial Pulse, Peripheral, Percutaneous Approach (ICD-10-PCS; 2022-10-22)
PROC: 02HV33Z Insertion of Infusion Device into Superior Vena Cava, Percutaneous Approach (ICD-10-PCS; 2022-10-22)
PROC: B548ZZA Ultrasonography of Superior Vena Cava, Guidance (ICD-10-PCS; 2022-10-22)
PROC: 0W9G3ZX Drainage of Peritoneal Cavity, Percutaneous Approach, Diagnostic (ICD-10-PCS; 2022-10-23)
PROC: 5A1935Z Respiratory Ventilation, Less than 24 Consecutive Hours (ICD-10-PCS; 2022-10-28)
PROC: 0BH17EZ Insertion of Endotracheal Airway into Trachea, Via Natural or Artificial Opening (ICD-10-PCS; 2022-10-28)
PROC: 0W9G3ZZ Drainage of Peritoneal Cavity, Percutaneous Approach (ICD-10-PCS; 2022-10-29)
DX: A41.9 Sepsis, unspecified organism (principal); G92.8 Other toxic encephalopathy; I81 Portal vein thrombosis; R65.21 Severe sepsis with septic shock; J96.22 Acute and chronic respiratory failure with hypercapnia; J96.21 Acute and chronic respiratory failure with hypoxia; N18.6 End stage renal disease; J69.0 Pneumonitis due to inhalation of food and vomit; J96.01 Acute respiratory failure with hypoxia; K65.2 Spontaneous bacterial peritonitis; D68.59 Other primary thrombophilia; D61.818 Other pancytopenia; E87.20 Acidosis, unspecified; I24.8 Other forms of acute ischemic heart disease; K76.6 Portal hypertension; J98.11 Atelectasis; Z68.1 Body mass index [BMI] 19.9 or less, adult; K74.69 Other cirrhosis of liver; D69.6 Thrombocytopenia, unspecified; F03.90 Unspecified dementia, unspecified severity, without behavioral disturbance, psychotic disturbance, mood disturbance, and anxiety; D53.9 Nutritional anemia, unspecified; Z99.2 Dependence on renal dialysis; K72.10 Chronic hepatic failure without coma
CPT/HCPCS: 0241U-QW; 36415; 36430; 36511; 36600; 71045-TC-FY; 76775-TC; 80048; 80053; 80076; 82042; 82140; 82150; 82248; 82550; 82553; 82607; 82746; 82803; 82945; 82962; 83010; 83605; 83615; 83735; 83986; 84100; 84436; 84443; 84484; 85025; 85027; 85045; 85610; 85730; 86803; 86850; 86880; 86900; 86901; 86922; 87040; 87070; 87075; 87205; 87340; 87635; 93005; 93010; 93306-TC; 94002; 99285-25; J0885; J3490; P9034; P9038; P9047; P9058